=== PATIENT | female | born 2000 | race African-American/Black ===

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

== ENCOUNTER 2022-04-22 16:47 | Emergency (ER) | payer OTHER, SELFPAY ==
[2022-04-22 16:48] VITALS: BP 139/97; PULSE 91; RESP 14; TEMP 36.8; O2SAT 100; BMI 38.9
--- NOTE | 2022-04-22 16:58 | EKG12_ITS ---
Test Reason : PALPS Blood Pressure : / mmHG Vent. Rate : 094 BPM Atrial Rate : 094 BPM P-R Int : 154 ms QRS Dur : 082 ms QT Int : 358 ms P-R-T Axes : 054 036 014 degrees QTc Int : 447 ms Normal sinus rhythm Normal ECG Confirmed by MERCEDES FAJARDO, GIO ([id number]), assistant film editor HORTENSIA MCKENNA ([id number]) on 04/23/2022 8:33:01 AM Referred By: Confirmed By:GIO LONG MD
--- NOTE | 2022-04-22 16:58 | EX.ED.DYSGE1 ---
HPI History of Present Illness Chief Complaint: Palpitations Informant: patient Narrative Narrative: 21-year-old female from the [facility] presenting to the emergency room with palpitations. She is stated that over the past week at basketball practice she finds that her heart is racing more than normal. She states that its gotten up to around 150 with just warm ups. At one point she felt near syncopal. She is also been experiencing some abdominal cramping. She notes normal bowel movements and normal urination. She has not had any new medication changes. She takes bupropion and Adderall. She also takes some supplemental magnesium and a multivitamin. She states that she went to urgent care and was advised to come to the emergency room. She has discussed this with her development trainer. [facility] Medical History Depression Home Medications bupropion HCl 150 mg tablet,12 hr sustained-release 150 mg PO BID 04/22/22 [History Last Taken Unknown] dextroamphetamine-amphetamine ER 20 mg 24hr capsule,extend release 20 mg PO DAILY 04/22/22 [History Last Taken Unknown] Allergy/AdvReac Type Severity Reaction Status Date / Time No Known Allergies Allergy Verified 04/22/22 16:48 Social History (Updated 04/22/22 @ 17:[address] Morgan Billings DO) Smoking Status: Never smoker substance use type: does not use ROS ROS ED ROS Narrative Fatigue and near syncope Constitutional Constitutional ED: Denies chills or weight loss Eyes Eyes: Denies blurry vision, change in vision or diplopia ENT ENT ED: Denies ear pain, rhinorrhea or sore throat Cardiovascular Cardiovascular: Reports racing heartbeat; Denies chest pain, orthopnea or palpitations Respiratory/Chest Respiratory/Chest: Denies cough, dyspnea or orthopnea Gastrointestinal Gastrointestinal: Reports other Details: Upper abdominal cramping ; Denies abdominal pain, diarrhea, nausea or vomiting Genitourinary Genitourinary ED: Denies dysuria, hematuria or urinary frequency Musculoskeletal Musculoskeletal: Denies arthralgias or myalgias Integumentary Denies abscess or rash Neurologic Neurologic: Denies headache(s) or weakness Psychiatric Psychiatric: Denies anxiety, depression, suicidal ideation or suicidal thoughts Endocrine Endocrinology: Denies polydipsia, polyphagia or polyuria Allergic/Immunologic Allergic/Immunologic ED: Denies mouth swelling, tongue swelling or urticaria EXAM Physical Exam Const Vital Signs: 04/22/22 16:48 04/22/22 16:57 Temperature 98.2 F Temperature Source Temporal Pulse Rate 91 Respiratory Rate 14 Respiratory Effort Normal Non-Labored Respiratory Pattern Normal Blood Pressure 139/97 H Blood Pressure Mean 111 Pulse Ox 100 Oxygen Delivery Method Room Air Positive well nourished and well developed General Appearance ED: well developed HEENT Reports normocephalic, head/scalp atraumatic and moist mucous membranes Eyes PERRL and EOMs intact bilaterally Neck no lymphadenopathy, supple and no JVD Resp normal respiratory effort and clear to auscultation bilaterally Cardio regular rate, regular rhythm and no murmurs GI normal to inspection, nondistended, normoactive bowel sounds and non-tender Palpation: soft Back/Spine no CVA tenderness and normal ROM Extremity normal to inspection General Extremety ED: Negative for edema General Extremity: Negative for edema Neuro oriented x3 and CN's II-XII intact bilaterally Sensorium / Orientation: alert Motor Exam: strength 5/5 throughout Psych mental status grossly normal Mood & Affect: Negative for depressed or tearful Skin no rashes or lesions noted and no wounds MDM MDM MDM Narrative Medical decision making narrative: Interpretation of the chest x-ray is no acute process. Patient's EKG shows a normal sinus rhythm at a ventricular rate of 94. Hemoglobin is 13. TSH is 0.66. Creatinine 1.18. Electrolytes including magnesium and potassium are within normal limits. At this point I think the patient can be discharged home. Unguinal recommend that she follow-up with cardiology and discussed possible getting a Holter monitor. Her abdomen is nonsurgical and her labs are negative. Lab Data Attestation: I reviewed the patient's lab results. Labs: Laboratory Results - last 24 hr 04/22/22 04/22/22 04/22/22 17:11 17:11 17:11 WBC 4.8 RBC 4.39 Hgb 13.0 Hct 38.5 MCV 87.7 MCH 29.6 MCHC 33.8 RDW Std Deviation 42.0 RDW Coeff of Dionicio 13.0 Plt Count 216 MPV 9.6 Immature Gran % (Auto) 0.200 Neut % (Auto) 51.3 Lymph % (Auto) 38.6 [place] % (Auto) 8.0 Eos % (Auto) 1.5 Baso % (Auto) 0.4 Absolute Neuts (auto) 2.5 Absolute Lymphs (auto) 1.84 Nucleated RBC % 0 Sodium 140 Potassium 3.8 Chloride 107 Carbon Dioxide 27.0 Anion Gap 6 BUN 10 Creatinine 1.18 H Estim Creat Clear Calc 73.95 Est GFR (MDRD) Af Amer 74 Est GFR (MDRD) Non-Af 62 BUN/Creatinine Ratio 8.5 L Glucose 78 Calcium 9.0 Magnesium 2.2 Total Bilirubin 0.40 AST 25 ALT 32 Alkaline Phosphatase 81 Total Protein 7.4 Albumin 3.9 Globulin 3.5 Albumin/Globulin Ratio 1.1 TSH 0.66 Serum , Qual NEGATIVE Radiography Diagnostic Testing: Clinical Impression(s) from Imaging Studies Chest X-Ray 04/22/22 17:13 IMPRESSION: There are no acute findings. Electronically Signed: Eduardo Rajan MD at 17:25 EDT Reading Location ID and State: [facility] / [place] , Service support , EKG Initial EKG: Attestation: I personally reviewed and interpreted this EKG as follows: Comments: Normal sinus rhythm with a ventricular rate of 94 bpm Discharge Plan Triage Chief Complaint: Palpitations ED Provider: Morgan Billings Dx/Rx/DC Orders Clinical Impression: Heart palpitations, Abdominal cramping Instructions: ED About Arrhythmias Prescriptions: No Action bupropion HCl 150 mg tablet sustained-release 12 hr 150 mg PO BID Label Comments: TAKE 1 TABLET BY MOUTH TWICE DAILY dextroamphetamine-amphetamine 20 mg capsule,extended release 24hr 20 mg PO DAILY Label Comments: Take one capsule by mouth daily. Primary Care Provider: CARLENE AMBROSE Referrals: CARLENE AMBROSE [Other] Teresa Lancaster MD [Med Staff - Active Staff] - As soon as possible Disposition Disposition: Home, Self Care
--- NOTE | 2022-04-22 17:13 | RAD_ITS ---
STUDY: X-RAY CHEST REASON FOR EXAM: Female, 21 years old. CHEST PAIN palpitations TECHNIQUE: XR Chest 1 View COMPARISON: None FINDINGS: There is no demonstrated pleural abnormality. Normal size heart. Normal mediastinum and shawn. Normal visualized pulmonary arteries. Normal visualized aortic arch and descending thoracic aorta. Normal visualized thoracic spine. Normal visualized ribs, clavicles, and shoulders. There is no demonstrated abnormality of the visualized soft tissue structures of the upper abdomen. RAD/Chest 1 View (Portable) IMPRESSION: There are no acute findings. Electronically Signed: Eduardo Rajan MD at 17:25 EDT ,
--- NOTE | 2022-04-22 17:17 | NURSING ---
NO OLD EKGS
[2022-04-22 17:18] LABS: Absolute Lymphocyte Count 1.84 X10^3/uL (0.83-4.51); Absolute Neutrophil Count 2.5 X10^3/uL (2.0-7.7); Basophil# 0.02 X10^3/uL; Basophil% 0.4 % (0-1); Eosinophil# 0.07 X10^3/uL; Eosinophils% 1.5 % (0-5); Hematocrit 38.5 % (37-47); Lymphocyte # 1.84 X10^3/ul (0.83-4.51); Lymphocyte % 38.6 % (19-41); Mean Corp Hgb Conc 33.8 g/dL (32-36); Mean Corpuscular Hgb 29.6 pg (27.0-32.0); Mean Corpuscular Volume 87.7 fL (81-99); Mean Platelet Vol. 9.6 fl (6.2-12.0); Monocyte# 0.38 X10^3/uL; NRBC Flagged by Analyzer 0 % (0-5); Neutrophil # 2.45 X10^3/uL (2.7-7.7); Neutrophil % 51.3 % (47-70); Platelet Count 216 K/mm3 (150-450); Red Blood Count 4.39 M/mm3 (4.2-5.4); White Blood Count 4.8 K/mm3 (4.4-11.0)
[2022-04-22 17:44] LABS: ALB/GLOB Ratio 1.1 RATIO (0.9-2.4); AST(SGOT) 25 U/L (15-37); Alanine Aminotransfer ALT/SGPT 32 U/L (13-56); Albumin, Serum 3.9 g/dL (3.2-5.0); Alkaline Phosphatase 81 U/L (45-117); Anion Gap 6 (5-15); BUN 10 mg/dL (7-18); BUN/Creat Ratio 8.5 RATIO (10-20); Chloride 107 mmol/L (98-107); Creatinine, Serum 1.18 mg/dL (0.55-1.02); EST Glomerular Filtration Rate 62 mL/min (>60); Est Glom Filt Rate - Afr Amer 74 mL/min (>60); Estimated Creatinine Clearance 73.95 ml/min; Globulin 3.5 g/dL (2.2-4.2); Glucose 78 mg/dL (74-106); Magnesium 2.2 mg/dL (1.6-2.6); Potassium 3.8 mmol/L (3.5-5.1); Protein, Total 7.4 g/dL (6.4-8.2); Sodium Level 140 mmol/L (136-145); Thyroid Stim Hormone (TSH) 0.66 uIU/mL (0.358-3.74)
[2022-04-22 18:15] LABS: Internal QC Validated? YES +Cl - CLEAR BKGD; Pregnancy, Serum, hCG Quali. NEGATIVE Negative
[2022-04-22 18:27] VITALS: BP 113/62; PULSE 97; RESP 15; O2SAT 99
== END 2022-04-22 18:27 | disposition home or self-care (01) ==
PROVIDERS: Emergency Provider Emergency Medicine; Visit Provider Emergency Medicine
DX: R00.2 Palpitations (principal); R10.9 Unspecified abdominal pain; F32.A Depression, unspecified; Z79.899 Other long term (current) drug therapy
CPT/HCPCS: 71045; 80053; 83735; 84443; 84703; 85025; 93005; 99284; A4216